=== PATIENT | male | born 1970 | race Caucasian/White ===

== ENCOUNTER 2022-06-23 08:18 | Inpatient (IN) | payer MEDICARE, OTHER, SELFPAY ==
[~2022-06-23] VITALS: Ht 180.3 cm; Wt 100.7 kg
[~2022-06-23 08:18] MED LIST: AMLO-257 PO; BENZ0.5T32 PO; HALOD100I IM; METF-1211 PO; OLAN7.5T22 PO; QUET100T PO
[2022-06-23] MEDS ORDERED: ATOR10TA PO (08:24)
[2022-06-23] MEDS ORDERED: LISI-894 PO (08:24)
[2022-06-23] MEDS ORDERED: GLIP10TA10 PO (08:24)
[2022-06-23 08:51] LABS: BASOPHILS % (AUTO) 0.9 % (0.0-2.0); HEMATOCRIT 47.1 % (41-53); HEMOGLOBIN 15.8 g/dL (13.5-17.5); LYMPHOCYTES # (AUTO) 2.3 K/uL (1.0-4.8); LYMPHOCYTES % (AUTO) 26.1 % (22.0-44.0); MEAN CORPUSCULAR HEMOGLOBIN 27.5 pg (26.0-34.0); MEAN CORPUSCULAR HGB CONC 33.5 G/dL (31.0-37.0); MEAN CORPUSCULAR VOLUME 82 fL (80-100); MONOCYTES # (AUTO) 0.8 K/uL (0.1-1.0); MONOCYTES % (AUTO) 9.2 % (2.0-9.0); NEUTROPHILS # (AUTO) 5.4 K/uL (1.8-7.7); NEUTROPHILS % (AUTO) 61.8 % (40.0-70.0); PLATELET COUNT (AUTO) 361 K/uL (150-450); RED BLOOD CELL COUNT(AUTO) 5.73 MIL/uL (4.50-5.90); RED CELL DISTRIBUTION WIDTH 13.3 % (11.5-14.5)
[2022-06-23 08:59] LABS: ANION GAP 10 mmol/L (8-16); CALCIUM, TOTAL 8.7 mg/dL (8.8-10.5); CARBON DIOXIDE 26 mmol/L (22-29); CHLORIDE 98 mmol/L (98-107); CREATININE 1.16 mg/dL (0.60-1.30); GLUCOSE,RANDOM 224 mg/dL (70-110); SODIUM SERUM 134 mmol/L (136-145); UREA NITROGEN, BLOOD 13 mg/dL (7-18)
[2022-06-23 09:00] LABS: GLOMERULAR FILTR. RATE CALC > 60 mL/min (>60)
[2022-06-23 09:06] LABS: ALANINE AMINOTRANSFERASE 33 U/L (12-78); ALBUMIN 3.9 g/dL (3.4-5.0); ALKALINE PHOSPHATASE 130 U/L (46-116); ASPARTATE AMINOTRANSFERASE 23 U/L (15-37); BILIRUBIN,TOTAL 0.4 mg/dL (0.1-1.0); TOTAL PROTEIN, SERUM 8.2 g/dL (6.4-8.2)
[2022-06-23] MEDS ORDERED: OLANZapine 5 MG TABLET PO ONE (09:30)
[2022-06-23 10:04] LABS: COVID AG,FIA SOURCE NASOPHARYNGEAL
[2022-06-23] MEDS ORDERED: LORazepam 2 MG TABLET PO PRN (12:00)
[2022-06-23] MEDS ORDERED: ZOLPIDEM TARTRATE 10 MG TABLET PO PRN (12:00)
[2022-06-23] MEDS ORDERED: HALOPERIDOL 5 MG TABLET PO PRN (12:00)
[2022-06-23] MEDS ORDERED: LISINOPRIL 20 MG TABLET PO ONE (13:15)
[2022-06-23] MEDS ORDERED: AmLODIPine BESYLATE 5 MG TABLET PO ONE (13:15)
[2022-06-23 15:34] VITALS: BP 156/97
[2022-06-23 15:51] LABS: GLUCOMETER DEV NAME(LOC) BV2X.2; GLUCOSE,POINT OF CARE 305 MG/DL (70-110)
[2022-06-23] MEDS ORDERED: GLUCAGON,HUMAN RECOMBINANT 1 MG VIAL IM PRN (16:00)
[2022-06-23 16:09] VITALS: BP 147/93
[2022-06-23] MEDS: MetFORMIN HCL 500 MG TABLET PO SCH (16:32)
[2022-06-23] MEDS: AmLODIPine BESYLATE 5 MG TABLET PO SCH (16:32)
[2022-06-23] MEDS: INSULIN LISPRO 100 UNITS/ML SQ PRN ×2 (16:40→20:22)
[2022-06-23] MEDS ORDERED: INFLUENZA VIRUS VACCINE QVS 2022-23 (6MO+)/PF 60 MCG/0.5 ML SYRINGE IM. ONE (17:00)
[2022-06-23 20:11] VITALS: BP 138/82
[2022-06-23] MEDS: ATORVASTATIN CALCIUM 10 MG TABLET PO SCH (20:19)
[2022-06-23 20:36] LABS: GLUCOMETER DEV NAME(LOC) BV2X.2; GLUCOSE,POINT OF CARE 225 MG/DL (70-110)
[2022-06-24 04:00] VITALS: BP 132/80
[2022-06-24 06:17] LABS: GLUCOMETER DEV NAME(LOC) BV2X.2; GLUCOSE,POINT OF CARE 228 MG/DL (70-110)
[2022-06-24] MEDS: INSULIN LISPRO 100 UNITS/ML SQ PRN ×4 (06:55→20:38)
[2022-06-24] MEDS: MetFORMIN HCL 500 MG TABLET PO SCH ×2 (06:56→16:32)
[2022-06-24 08:46] VITALS: BP 151/89
[2022-06-24] MEDS: AmLODIPine BESYLATE 5 MG TABLET PO SCH ×2 (08:47→16:32)
[2022-06-24] MEDS: LISINOPRIL 20 MG TABLET PO SCH (08:47)
[2022-06-24] MEDS: NICOTINE 21 MG/24 HOUR PATCH TD SCH (08:48)
[2022-06-24 11:31] LABS: GLUCOMETER DEV NAME(LOC) BV2X.2; GLUCOSE,POINT OF CARE 268 MG/DL (70-110)
[2022-06-24 16:30] VITALS: BP 129/80
[2022-06-24 16:37] LABS: GLUCOMETER DEV NAME(LOC) BV2X.2; GLUCOSE,POINT OF CARE 280 MG/DL (70-110)
[2022-06-24] MEDS ORDERED: ONDANSETRON HCL 4 MG TABLET PO PRN (19:15)
[2022-06-24] MEDS ORDERED: OMEPRAZOLE 20 MG CAPSULE PO PRN (19:15)
[2022-06-24] MEDS ORDERED: BACITRACIN 28 GM OINTMENT TP PRN (19:15)
[2022-06-24] MEDS ORDERED: PETROLATUM,WHITE 28 GM JELLY TP PRN (19:15)
[2022-06-24] MEDS ORDERED: ALBUTEROL SULFATE HFA 90 MCG/PUFF 8 GM INHALER IH PRN (19:15)
[2022-06-24] MEDS ORDERED: CloNIDine HCL 0.1 MG TABLET PO PRN (19:15)
[2022-06-24] MEDS ORDERED: IBUPROFEN 600 MG TABLET PO PRN (19:15)
[2022-06-24] MEDS ORDERED: ACETAMINOPHEN 325 MG TABLET PO PRN (19:15)
[2022-06-24] MEDS ORDERED: DOCUSATE SODIUM 100 MG CAPSULE PO PRN (19:15)
[2022-06-24] MEDS ORDERED: LOPERAMIDE HCL 2 MG CAPSULE PO PRN (19:15)
[2022-06-24] MEDS ORDERED: MAGNESIUM HYDROXIDE SUSPENSION 30 ML UDCUP PO PRN (19:15)
[2022-06-24] MEDS ORDERED: MAG HYDROX/AL HYDROX/SIMETH ES 30 ML SUSPENSION UDCUP PO PRN (19:15)
[2022-06-24] MEDS ORDERED: BENZOCAINE/MENTHOL LOZENGE PO PRN (19:15)
[2022-06-24] MEDS ORDERED: BENZ1TAB96 PO (19:16)
[2022-06-24] MEDS ORDERED: GLIP-197 PO (19:16)
[2022-06-24] MEDS: ATORVASTATIN CALCIUM 10 MG TABLET PO SCH (20:33)
[2022-06-24 20:36] LABS: GLUCOMETER DEV NAME(LOC) BV2X.2; GLUCOSE,POINT OF CARE 259 MG/DL (70-110)
[2022-06-24 20:40] VITALS: BP 132/83
[2022-06-25 06:01] LABS: GLUCOMETER DEV NAME(LOC) BV2X.2; GLUCOSE,POINT OF CARE 225 MG/DL (70-110)
[2022-06-25] MEDS: INSULIN LISPRO 100 UNITS/ML SQ PRN ×4 (06:16→20:54)
[2022-06-25] MEDS: MetFORMIN HCL 500 MG TABLET PO SCH ×2 (06:52→16:53)
[2022-06-25] MEDS: AmLODIPine BESYLATE 5 MG TABLET PO SCH ×2 (09:12→16:53)
[2022-06-25] MEDS: NICOTINE 21 MG/24 HOUR PATCH TD SCH (09:12)
[2022-06-25] MEDS: LISINOPRIL 20 MG TABLET PO SCH (09:12)
[2022-06-25 10:14] VITALS: BP 149/90
[2022-06-25 12:07] LABS: GLUCOMETER DEV NAME(LOC) BV2S.; GLUCOSE,POINT OF CARE 236 MG/DL (70-110)
[2022-06-25 20:20] VITALS: BP 141/83
[2022-06-25 20:26] LABS: GLUCOMETER DEV NAME(LOC) BV2X.2; GLUCOSE,POINT OF CARE 289 MG/DL (70-110)
[2022-06-25] MEDS: ATORVASTATIN CALCIUM 10 MG TABLET PO SCH (20:34)
[2022-06-26 06:06] LABS: GLUCOMETER DEV NAME(LOC) BV2X.2; GLUCOSE,POINT OF CARE 264 MG/DL (70-110)
[2022-06-26] MEDS: MetFORMIN HCL 500 MG TABLET PO SCH ×2 (06:26→16:30)
[2022-06-26] MEDS: INSULIN LISPRO 100 UNITS/ML SQ PRN ×4 (06:28→21:05)
[2022-06-26] MEDS: LISINOPRIL 20 MG TABLET PO SCH (08:28)
[2022-06-26] MEDS: AmLODIPine BESYLATE 5 MG TABLET PO SCH ×2 (08:28→16:30)
[2022-06-26] MEDS: NICOTINE 21 MG/24 HOUR PATCH TD SCH (08:29)
[2022-06-26 08:38] VITALS: BP 154/92
[2022-06-26 11:31] LABS: GLUCOMETER DEV NAME(LOC) BV2X.2; GLUCOSE,POINT OF CARE 244 MG/DL (70-110)
[2022-06-26 16:31] LABS: GLUCOMETER DEV NAME(LOC) BV2X.2; GLUCOSE,POINT OF CARE 323 MG/DL (70-110)
[2022-06-26 16:37] VITALS: BP 139/83
[2022-06-26 20:11] VITALS: BP 139/79
[2022-06-26 20:31] LABS: GLUCOMETER DEV NAME(LOC) BV2X.2; GLUCOSE,POINT OF CARE 158 MG/DL (70-110)
[2022-06-26] MEDS: ATORVASTATIN CALCIUM 10 MG TABLET PO SCH (20:36)
[2022-06-27 06:11] LABS: GLUCOMETER DEV NAME(LOC) BV2X.2; GLUCOSE,POINT OF CARE 202 MG/DL (70-110)
[2022-06-27] MEDS: MetFORMIN HCL 500 MG TABLET PO SCH (06:45)
[2022-06-27] MEDS: INSULIN LISPRO 100 UNITS/ML SQ PRN ×2 (06:47→11:19)
[2022-06-27] MEDS: LISINOPRIL 20 MG TABLET PO SCH (08:54)
[2022-06-27] MEDS: AmLODIPine BESYLATE 5 MG TABLET PO SCH (08:54)
[2022-06-27 08:55] VITALS: BP 139/85
[2022-06-27] MEDS: NICOTINE 21 MG/24 HOUR PATCH TD SCH (08:57)
[2022-06-27] MEDS ORDERED: METF-1211 PO (11:08)
[2022-06-27 11:41] LABS: GLUCOMETER DEV NAME(LOC) BV2X.2; GLUCOSE,POINT OF CARE 268 MG/DL (70-110)
== END 2022-06-27 12:04 | disposition home or self-care (01) | DRG 885 ==
LOC: EMS 08:26 → B2X 11:16
PROVIDERS: ADMIT Psychiatry & Neurology Psychiatry; ATTEND Psychiatry & Neurology Psychiatry
DX: F20.9 Schizophrenia, unspecified (principal); E11.9 Type 2 diabetes mellitus without complications; Z20.822 Contact with and (suspected) exposure to COVID-19; F12.90 Cannabis use, unspecified, uncomplicated; F17.210 Nicotine dependence, cigarettes, uncomplicated; F10.90 Alcohol use, unspecified, uncomplicated; E78.5 Hyperlipidemia, unspecified; F41.9 Anxiety disorder, unspecified; I10 Essential (primary) hypertension; Z23 Encounter for immunization; Z79.899 Other long term (current) drug therapy; Z56.0 Unemployment, unspecified; Z71.51 Drug abuse counseling and surveillance of drug abuser; Z71.6 Tobacco abuse counseling; Z71.41 Alcohol abuse counseling and surveillance of alcoholic
CPT/HCPCS: 80053; 82962; 85025; 90686; 99285; G0480

== ENCOUNTER 2022-07-11 10:42 | Emergency (ER) | payer MEDICARE ==
[~2022-07-11] VITALS: Ht 177.8 cm; Wt 108.6 kg
[~2022-07-11 10:42] MED LIST changes: +ATOR10TA PO; -BENZ0.5T32 PO; -HALOD100I IM; +LISI-894 PO; -OLAN7.5T22 PO; -QUET100T PO
[2022-07-11] MEDS ORDERED: INSU100V42 SQ (10:48)
[2022-07-11 10:56] LABS: COVID AG,FIA SOURCE NASAL SWAB
[2022-07-11 12:38] LABS: INFLUENZA TYPE A NEGATIVE FOR TYPE A (NEGATIVE); INFLUENZA TYPE B NEGATIVE FOR TYPE B (NEGATIVE)
[2022-07-11 13:25] VITALS: BP 146/80
== END 2022-07-11 13:45 | disposition home or self-care (01) ==
LOC: EMS 10:44
DX: J06.9 Acute upper respiratory infection, unspecified (principal); F20.9 Schizophrenia, unspecified; F12.90 Cannabis use, unspecified, uncomplicated; F17.210 Nicotine dependence, cigarettes, uncomplicated; Z79.84 Long term (current) use of oral hypoglycemic drugs; Z79.899 Other long term (current) drug therapy; Z20.822 Contact with and (suspected) exposure to COVID-19
CPT/HCPCS: 82962; 87804; 99283

== ENCOUNTER 2022-08-02 09:50 | Emergency (ER) | payer MEDICARE ==
[~2022-08-02] VITALS: Ht 177.8 cm; Wt 108.6 kg
[~2022-08-02 09:50] MED LIST changes: +INSU100V42 SQ
[2022-08-02] MEDS ORDERED: ACET-2080 PO (12:16)
[2022-08-02] MEDS ORDERED: IBUP-1554 PO (12:16)
[2022-08-02] MEDS ORDERED: PENI500T2 PO (12:16)
[2022-08-02 12:35] VITALS: BP 135/78
== END 2022-08-02 13:00 | disposition home or self-care (01) ==
LOC: EMS 09:55
DX: K04.7 Periapical abscess without sinus (principal); K02.9 Dental caries, unspecified; E11.9 Type 2 diabetes mellitus without complications; E78.00 Pure hypercholesterolemia, unspecified; I10 Essential (primary) hypertension; F20.9 Schizophrenia, unspecified; F17.210 Nicotine dependence, cigarettes, uncomplicated; F12.90 Cannabis use, unspecified, uncomplicated
CPT/HCPCS: 82962; 99282